=== PATIENT | female | born 1970 | race Two or more races ===

== ENCOUNTER 2021-08-24 21:51 | Emergency (ER) | payer MEDICAID ==
[~2021-08-24] VITALS: Ht 157.5 cm; Wt 52.6 kg
--- NOTE | 2021-08-24 23:21 | NUR ---
PT BIBFAMILY VIA W/C C/O R ANKLE PAIN & SWELLING S/P GLF. DEFORMITY & EXTERNAL ROTATION NOTED. PT A/OX4. TOLERATING R/A WELL WITH NO SOB.
[2021-08-24] MEDS ORDERED: MORPHINE SULFATE INJ 4 MG/ML DISP.SYRIN ONE (23:41)
[2021-08-24] MEDS ORDERED: VANCOMYCIN 1 GM VIAL ONE ×2 (23:41→23:59)
--- NOTE | 2021-08-24 23:50 | NUR ---
RAC #18G S/L; PATENT AND INTACT
--- NOTE | 2021-08-24 23:50 | NUR ---
Torres blandon in [facility] - 08/24/21 at 2357 by CINDY BASTING CLEANER AT PT'S BEDSIDE
--- NOTE | 2021-08-24 23:56 | NUR ---
PERISHABLE FRUIT INSPECTOR AT PT'S BEDSIDE
[2021-08-25] MEDS ORDERED: MORPHINE SULFATE INJ 2 MG/ML DISP.SYRIN IV ONE
[2021-08-25] MEDS ORDERED: TDAP [DIPH/PERTUSSIS/TET] 0.5 ML VIAL IM ONE
[2021-08-25] MEDS ORDERED: VANCOMYCIN 1 GM in IV D5W 250 ML IV SCH ×2
[2021-08-25] MEDS ORDERED: KETOROLAC TROMETHAMINE INJ 30 MG/ML VIAL ONE (00:55)
[2021-08-25] MEDS ORDERED: KETAMINE HCL (500MG/10ML) 50 MG/ML VIAL ONE (00:55)
[2021-08-25] MEDS ORDERED: KETOROLAC TROMETHAMINE INJ 30 MG/ML VIAL IV ONE (01:00)
[2021-08-25] MEDS ORDERED: KETAMINE HCL (500MG/10ML) 50 MG/ML VIAL IV ONE (01:00)
--- NOTE | 2021-08-25 01:02 | NUR ---
PT SIGNED CONSENT FORM FOR RIGHT ANKLE REDUCTION UNDER MODERATE SEDATION ; VERBALIZED UNDERSTANDING
--- NOTE | 2021-08-25 02:39 | NUR ---
RIGHT ANKLE REDUCTION UNDER MODERATE SEDATION PROCEDURE: TIME IN 0205 DR. DUBOIS, EMT, RN & RT AT PT'S BEDSIDE 0218 ADMINISTERED TOTAL KETAMINE 200MG IVP VERBAL ORDER. VSS ON 2LPM N/C; TOLERATING WELL 0219 PROCEDURE DONE 0230 SPLINT APPLIED TO R ANKLE 0240 BUNDLE SORTER AT PT'S BEDSIDE VSS THROUGHOUT PROCEDURE
--- NOTE | 2021-08-25 04:08 | NUR ---
CALLED AUGUSTUS TO F/U WITH XRAY
[2021-08-25] MEDS ORDERED: IBUP-1953 PO (04:39)
[2021-08-25] MEDS ORDERED: HYDR-4275 PO (04:39)
[2021-08-25 05:00] VITALS: BP 119/87
[2021-08-25] MEDS ORDERED: ONDANSETRON 4 MG TAB.RAPDIS SL ONE (05:00)
[2021-08-25] MEDS ORDERED: ONDANSETRON 4 MG TAB.RAPDIS ONE (05:00)
--- NOTE | 2021-08-25 05:12 | NUR ---
Patient discharged to home in stable condition. Written and verbal after care instructions given. Patient verbalizes understanding of instruction. IV removed. Catheter intact and site benign. Pressure and 4x4 applied to site. No bleeding noted.
--- NOTE | 2021-08-27 02:40 | NUR ---
Torres blandon in [facility] - 08/31/21 at 0825 by CINDY KETAMINE 300MG WASTED WITH LAURA COLE RN
== END 2021-08-25 05:13 | disposition home or self-care (01) ==
LOC: ER 22:19
DX: S82.841A Displaced bimalleolar fracture of right lower leg, initial encounter for closed fracture (principal); E03.9 Hypothyroidism, unspecified; Z90.89 Acquired absence of other organs; Z79.1 Long term (current) use of non-steroidal anti-inflammatories (NSAID); Z79.891 Long term (current) use of opiate analgesic; W01.0XXA Fall on same level from slipping, tripping and stumbling without subsequent striking against object, initial encounter; Y93.89 Activity, other specified; Y92.89 Other specified places as the place of occurrence of the external cause; Y99.8 Other external cause status
CPT/HCPCS: 27810; 73600; 73610; 73630; 96365; 96375 ×2; 99152; 99285; J1885; J2270; J3370 ×2; J3490; Q0162; G0500